=== PATIENT | male | born 1955 | race Caucasian/White ===

== ENCOUNTER 2019-04-20 13:52 | Outpatient (CLI) | payer BC, SELFPAY ==
[2019-04-20 16:01] LABS: Basophils # 0.1 10^3/uL (0.0-0.1); Basophils % 0.6 %; Eosinophils # 0.3 10^3/uL (0.0-0.8); Eosinophils % 2.9 %; Hematocrit 26.3 % (42.0-52.0); Hemoglobin 7.9 g/dL (11.7-16.6); Lymphocytes # 1.3 10^3/uL (0.8-4.8); Lymphocytes % 14.8 %; Mean Corpuscular Hemoglobin 27.7 pg (28.0-34.0); Mean Corpuscular Volume 92.3 fL (80-94); Mean Platelet Volume 9.2 fL (7.4-10.4); Monocytes # 0.9 10^3/uL (0.2-0.9); Monocytes % 10.2 %; Neutrophils # 6.4 10^3/uL (1.8-7.7); Neutrophils % 71.1 %; Nucleated Red Blood Cells % 0 %; Platelet Count 496 10^3/cmm (130-400); Red Blood Count 2.85 10^6/uL (4.1-5.3); Red Cell Distribution Width 15.8 % (12.1-15.1)
[2019-04-20 16:24] LABS: Ferritin 136 ng/mL (30-400); Iron 57 ug/dL (59-158); Percent Saturation 20.2 % (20-50); Total Iron Binding Capacity 282 mg/dL; Unsaturated Iron Binding 225 ug/dL (112-347)
--- NOTE | 2019-04-20 19:32 | ONC CON_ITS ---
Dr. Mcmullen New Patient Note Patient: Rancho Jerry Unit #: [id number]: 1955 Dicatated By: Lei Mcmullen M.D.Date of Visit: Apr 20, 2019 Onc MED New Patient/Consult Referring Physician: Dr. Kodi Mejía M.D. Chief Complaint: Anemia. History of Present Illness: This is a 64 year-old man with moderately severe anemia. He has a history of superficial bladder cancer, initially diagnosed in May 2015. He had undergone multiple TURBT procedures, and he had treatment with intravesical BCG twice during 2015 and again in 2017. On a repeat TURBT on 11/18/2018 he was confirmed to have high-grade, muscle invasive urothelial carcinoma. He then underwent neoadjuvant MVAC chemotherapy followed by radical cystoprostatectomy with ileal conduit on 03/08/2019. I do not have the complete pathology report available. According to the patient there was residual tumor in the bladder but there was no involvement in 19 lymph nodes. Per records, his disease was T2b, N0, which woud be stage II (ypT2b, ypN0, M0). Pathology also showed [place] 3+3 adenocarcinoma involving 1% of the prostate. No additional treatment was recommended. However, during that time, he was found to have lower extremity deep vein thrombosis, for which he was started on anticoagulation with rivaroxaban. His postoperative course was complicated by urinary infection. He did require readmission to the hospital, but the illness resolved uneventfully. During his follow-up visit with he was found to be significantly anemic with his CBC on 04/05/2019 showing hemoglobin 7.7 g and hematocrit 23.7%. The red cell indices were normal. The white blood cell count was just slightly elevated at 11,700. The platelet count was normal at 394,000. His comprehensive metabolic profile showed elevated BUN and creatinine at 52 and 2.43 mg/dL. Albumin was normal at 3.8 g/dL. Bilirubin and liver enzymes were normal. At the time he was having blood in his urine, and he subsequently underwent removal of his ureteral stents. He also started taking an oral iron supplement in addition to his B complex vitamin supplement. He is seen now in regard to the anemia. He says that he has been feeling better since he has been on the oral iron supplement. He has had improvement in his energy/activity tolerance. He is walking quite a bit. His ECOG score is 1. Appetite also is better. He had lost weight, but most of that he has regained now. He has not had any more fever since his antibiotic therapy was completed. He does not have night sweating. He has no shortness of breath, cough, or chest pain. He has no GI complaints. He is currently having no problems with his ileal conduit, and he has had no further blood in the urine since the stents were removed. He has no significant joint or bone pain. He does not complain of headache. He has had some numbness in the ulnar distribution of the left hand. He is also had some tingling on the bottoms of his feet. Past Medical History: His medical history, in addition to bladder cancer, includes hypertension, lower extremity deep vein thrombosis, and obstructive sleep apnea. Past Surgical History: He underwent radical cystoprostatectomy with ileal conduit and with right inguinal hernia repair on 03/08/2019. He had previously undergone TURBT x 4 in 2016, x 1 in 2017 and 2017, and on 11/18/2018. Medications: Coenzyme Q10 1 Tablet Capsule Oral daily, DHEA 1 Capsule Oral daily, Gelatin 1 Capsule Oral daily, Ginkoba 1 Tablet Oral daily, Lisinopril 1 Tablet (of 10 mg) Oral daily, Vitamin B Complex 1 Tablet Oral daily, Xarelto 1 Tablet (of 20 mg) Oral daily Allergies: No Known Allergies. Social History: Mr. Jerry is . He is a non-smoker. He had previously chewed tobacco daily, but he quit in 1978. He has had some alcohol use in the past, but never heavy. He also quit drinking around 1978. Family History: His father at age 72 with complications following surgery for thoracic aneurysm. Mother with Alzheimer's dementia at age 78. A brother has been treated for head/neck cancer, and another brother has had a stroke. Review Of Symptoms: Constitutional - He was feeling very weak, his energy is much better now. Appetite is also better. He had lost weight, but most of that he has regained. He had fever associated with urinary infection, but that resolved with antibiotic. He has not had night sweating. ECOG score is 1, Eyes - No change in vision, ENMT - He has hearing loss and tinnitus. He has a little bit of sinus drainage. No mouth sores. No sore throat or difficulty swallowing, Hematologic/Lymphatic - No abnormal bruising, Respiratory - No shortness of breath. No cough. No pleuritic pain or hemoptysis, Cardiovascular - No angina pain. No palpitations, Gastrointestinal - No nausea or vomiting. No heartburn or acid reflux. No diarrhea or constipation. No blood in the stool or black stools, Genitourinary (M) - He is having no difficulty with the function of his ileal conduit, and he has had no blood in the urine since the stents were removed, Musculoskeletal - No joint or bone pain, Integumentary - He has no skin rash or other skin problems, Neurologic - No headache. He was having lightheadedness, but that has improved. He has some numbness in the ulnar distribution of the left hand, and he has tingling on the bottoms of his feet, Psychiatric - No anxiety or depression. No insomnia. Vital Signs: Performed on Apr 20, 2019 15:01: 0, 29.47, 2.11 sq.m, 70.00 in, 100 %, 84 /min, 22 /min, 128/79 mm(hg), 97.8 F (LOW), and 205.4 lbs (HIGH). Physical Examination: Constitutional - He appears to be in good general health, Eyes - Sclerae nonicteric. Conjunctivae clear, ENMT - No lesions noted in the oral cavity, Neck - No mass or thyromegaly, Hematologic/Lymphatic - No cervical, clavicular, or axillary adenopathy, Respiratory - Lungs are clear with good air movement bilaterally, Cardiovascular - Heart rhythm is regular. There is no murmur, gallop, or rub noted, Abdomen - Soft and non-tender. Liver and spleen are not enlarged. There is no abdominal mass or ascites noted and there is no inguinal adenopathy, Back/Spine - No spine or CVA tenderness noted, Extremities - No edema. Dorsalis pedis pulses are palpable bilaterally, Integumentary - No rashes. There are a couple of very small actinic lesions in the facial area. There are no other suspicious skin lesions noted, Neurologic - No focal neurologic deficits noted. Impression: 1. Patient with moderately severe anemia. Etiology is uncertain, but it is likely that he has at least some component of iron deficiency. 2. He has high-grade, muscle invasive urothelial carcinoma for which he underwent neoadjuvant MVAC chemotherapy followed by radical cystoprostatectomy/ileal conduit on 03/08/2019. His disease was stage II (ypT2b, ypN0, M0). 3. He had incidental finding of a [place] 3+3 adenocarcinoma involving 1% of the prostate. 4. His treatment was complicated by lower extremity deep vein thrombosis, for which he is currently on anticoagulation with rivaroxaban. 5. He had previous history of superficial bladder cancer for which he had undergone multiple TURBT procedures and intravesical BCG. His other medical illnesses include: 6. Hypertension. 7. Obstructive sleep apnea. Plan: He will have additional laboratory studies today including CBC, basic metabolic profile, serum iron studies and ferritin, and a B12 level. He will have further evaluation as indicated. If the anemia is not improving and he is confirmed to have iron deficiency, he will be given the option to have parenteral iron replacement with Injectafer, as it would indicate a failure on oral iron supplementation. Signed By: Lei Mcmullen M.D. <<Signature on File>>
[2019-04-20 19:57] LABS: Anion Gap 17.8 (5-19); Blood Urea Nitrogen 43 mg/dL (8-23); Calcium 10.5 mg/Dl (8.8-10.2); Carbon Dioxide 19 mmol/L (22-29); Chloride 103 mmol/L (98-107); Glomerular Filtration Rate 38.2 mL/min (90-130); Glucose 95 mg/dL (74-106); Osmolality Calculated 278 mOsm/kg (285-295); Potassium 4.8 mmol/L (3.5-5.1); Sodium 135 mmol/L (136-145)
[2019-04-20 20:43] LABS: Vitamin B12 483 pg/mL (232-1245)
== END 2019-04-20 13:53 | disposition home or self-care (01) ==
LOC: ONCMED 13:57
PROVIDERS: Visit Provider Internal Medicine Medical Oncology
DX: D50.0 Iron deficiency anemia secondary to blood loss (chronic) (principal); C61 Malignant neoplasm of prostate; C67.9 Malignant neoplasm of bladder, unspecified; I10 Essential (primary) hypertension; G47.33 Obstructive sleep apnea (adult) (pediatric); Z79.01 Long term (current) use of anticoagulants; Z93.50 Unspecified cystostomy status; Z87.891 Personal history of nicotine dependence; Z90.79 Acquired absence of other genital organ(s); Z92.21 Personal history of antineoplastic chemotherapy; Z86.718 Personal history of other venous thrombosis and embolism; Z87.440 Personal history of urinary (tract) infections; Z92.3 Personal history of irradiation
CPT/HCPCS: 36591; 80048; 82607; 82728; 83540; 83550; 85025; 99205

== ENCOUNTER 2019-04-26 14:41 | Outpatient (CLI) | payer BC, SELFPAY ==
[2019-04-26] MEDS: sodium chloride 0.9% 100 ML 400 ML (15:02)
== END 2019-04-26 14:42 | disposition home or self-care (01) ==
LOC: ONCMED 14:45
PROVIDERS: PCP Family Medicine; Visit Provider Internal Medicine Hematology & Oncology
DX: D50.9 Iron deficiency anemia, unspecified (principal)
CPT/HCPCS: 96365; J1439

== ENCOUNTER 2019-05-03 14:09 | Outpatient (CLI) | payer BC, SELFPAY | END 2019-05-03 14:10 | disposition home or self-care (01) | LOC: ONCMED 14:09 | PROVIDERS: PCP Family Medicine; Visit Provider Internal Medicine Medical Oncology | DX: D50.9 Iron deficiency anemia, unspecified (principal) | CPT/HCPCS: 96365; J1439 ==

== ENCOUNTER 2019-06-01 12:13 | Outpatient (CLI) | payer BC, SELFPAY ==
[2019-06-01 12:37] LABS: Basophils % 0.2 %; Eosinophils # 0.3 10^3/uL (0.0-0.8); Eosinophils % 3.4 %; Hematocrit 37.6 % (42.0-52.0); Hemoglobin 11.4 g/dL (11.7-16.6); Lymphocytes # 1.3 10^3/uL (0.8-4.8); Lymphocytes % 14.1 %; Mean Corpuscular HGB Conc 30.3 g/dL (30.0-36.0); Mean Corpuscular Hemoglobin 28.4 pg (28.0-34.0); Mean Corpuscular Volume 93.8 fL (80-94); Mean Platelet Volume 10.1 fL (7.4-10.4); Monocytes # 0.9 10^3/uL (0.2-0.9); Monocytes % 9.5 %; Neutrophils # 6.5 10^3/uL (1.8-7.7); Neutrophils % 72.6 %; Nucleated Red Blood Cells % 0 %; Platelet Count 253 10^3/cmm (130-400); Red Blood Count 4.01 10^6/uL (4.1-5.3); Red Cell Distribution Width 15.2 % (12.1-15.1); White Blood Count 8.9 10^3/uL (4.0-10.0)
[2019-06-01 12:50] LABS: Ferritin 411 ng/mL (30-400); Iron 71 ug/dL (59-158); Percent Saturation 32.5 % (20-50); Total Iron Binding Capacity 218 mcg/dl; Unsaturated Iron Binding 147 ug/dL (112-347)
--- NOTE | 2019-06-05 23:00 | ONC FU_ITS ---
[facility] Patient Note Patient: Rancho Jerry Unit #: [id number]: 1955 Dictated By: Katya HancockDate of Visit: Jun 01, 2019 Onc MED Follow-Up/Prog Note Chief Complaint: Anemia. History of Present Illness: Mr Jerry is a 64 year-old man with moderately severe anemia. He has a history of superficial bladder cancer, initially diagnosed in May 2015. He had undergone multiple TURBT procedures, and he had treatment with intravesical BCG twice during 2015 and again in 2017. On a repeat TURBT on 11/18/2018 he was confirmed to have high-grade, muscle invasive urothelial carcinoma. He then underwent neoadjuvant MVAC chemotherapy followed by radical cystoprostatectomy with ileal conduit on 03/08/2019. We do not have the complete pathology report available. According to the patient there was residual tumor in the bladder but there was no involvement in 19 lymph nodes. Per records, his disease was T2b, N0, which woud be stage II (ypT2b, ypN0, M0). Pathology also showed [place] 3+3 adenocarcinoma involving 1% of the prostate. No additional treatment was recommended. However, during that time, he was found to have lower extremity deep vein thrombosis, for which he was started on anticoagulation with rivaroxaban. His postoperative course was complicated by urinary infection. He did require readmission to the hospital, but the illness resolved uneventfully. During his follow-up visit with he was found to be significantly anemic with his CBC on 04/05/2019 showing hemoglobin 7.7 g and hematocrit 23.7%. The red cell indices were normal. The white blood cell count was just slightly elevated at 11,700. The platelet count was normal at 394,000. His comprehensive metabolic profile showed elevated BUN and creatinine at 52 and 2.43 mg/dL. Albumin was normal at 3.8 g/dL. Bilirubin and liver enzymes were normal. At the time he was having blood in his urine, and he subsequently underwent removal of his ureteral stents. He also started taking an oral iron supplement in addition to his B complex vitamin supplement. Mr Jerry was unable to tolerate the oral iron and was given IV iron replacement with Injectafer on 04/26 & 05/03/2019. He is here today for follow-up post Injectafer. His hemoglobin prior to the Injectafer was 7.9. He states overall he is feeling really good. He is walking 2 miles at least 3 days a week. He states some days he works further. He is tolerating this well. He denies any shortness of breath. He denies any fatigue. He denies any new pain. He states overall he feels he is doing good. He had no reactions from the Injectafer that he is aware of. He denies any rash. He had no nausea or vomiting. He denies any diarrhea or constipation. His ECOG is 0. Past Medical History: Hypertension Lower extremity deep vein thrombosis Obstructive sleep apnea Past Surgical History: TURBT x 4 in 2016, x 1 in 2017 and 2018, and on 11/18/2018 Radical cystoprostatectomy with ileal conduit and with right inguinal hernia repair in 2019 Allergies: No Known Allergies. Medications: Coenzyme Q10 1 Tablet Capsule Oral daily DHEA 1 Capsule Oral daily Gelatin 1 Capsule Oral daily Ginkoba 1 Tablet Oral daily Lisinopril 1 Tablet (of 10 mg) Oral daily Vitamin B Complex 1 Tablet Oral daily Family History: Mr. Jerry's mother at age 78: fior. Mr. Jerry's father at age 72. Mr. Jerry has 3 brothers: 3 alive. Mr. Jerry's first brother's stroke. His father at age 72 with complications following surgery for thoracic aneurysm. Mother with Alzheimer's dementia at age 78. A brother has been treated for head/neck cancer, and another brother has had a stroke. Social History: Mr. Jerry is and he is an unknown. Mr. Jerry has never smoked. He is a former drinker. He is a non-smoker. He had previously chewed tobacco daily, but he quit in 1978. He has had some alcohol use in the past, but never heavy. He also quit drinking around 1978. Review Of Symptoms: Constitutional Denies fevers, chills, night sweats, excessive fatigue or weight loss. Allergic/Immunologic No reactions. Eyes Denies significant visual changes. No diplopia. No amaurosis. ENMT Denies changes in hearing, sore throat, mouth sores, difficulty or changes in swallowing ability, and/or sinus drainage. Hematologic/Lymphatic Denies easy bruising or bleeding. The patient denies any tender or palpable lymph nodes. Respiratory Denies dyspnea on exertion, chest pain, cough or hemoptysis. Denies orthopnea. Cardiovascular Denies anginal chest pain, palpitations or orthopnea. Gastrointestinal Denies nausea, vomiting, diarrhea, GI bleeding, or constipation. Denies change in bowel habits and/or stool color, no heartburn or early satiety. Genitourinary (M) Denies hematuria, dysuria, increased frequency, urgency, hesitancy or incontinence. Musculoskeletal Denies joint pain, swelling or redness. No decreased range of motion. Integumentary Denies chronic rashes, inflammation, ulcerations or skin changes. Neurologic Denies headache, blurred vision, and no areas of focal weakness or numbness. Normal gait. No sensory problems. Psychiatric Denies insomnia, depression, baldemar or mood swings. Vital Signs: Performed on Jun 01, 2019 14:33 Height - 70.00 in Weight - 218.4 lbs (HIGH) BSA - 2.17 sq.m BMI - 31.34 (HIGH) Temperature - 97.2 F (LOW) Pulse - 65 /min Respiration - 16 /min BP - 128/74 mm(hg) O2 Sat - 96 % Pain - 0 Fatigue - 0,0 - Fully active, able to carry on all predisease activities without restrictions. (ECOG) Physical Examination: Constitutional Alert, oriented, no acute distress. Skin pink, warm and dry. Head Normocephalic; atraumatic. Eyes Conjunctivae and sclerae are clear and without icterus. Pupils are reactive and equal. Neck Supple without masses or thyromegaly. No jugular venous distension. Hematologic/Lymphatic No petechiae or purpura. No tender or palpable lymph nodes in the cervical or supraclavicular areas. Respiratory Lungs are clear to auscultation without rhonchi or wheezing. Cardiovascular Regular rate and rhythm of heart without murmurs,clicks, gallops or rubs. Back/Spine Non-tender to palpation. Extremities No visible deformities, no cyanosis, clubbing or edema. Musculoskeletal No tenderness or swelling, normal range of motion without obvious weakness. Integumentary No rashes or lesions. Neurologic No sensory or motor deficits, normal cerebellar function, normal gait. Psychiatric Alert and oriented times three. Coherent speech. Verbalizes understanding of our discussions today. Laboratory:Test performed on Jun 01, 2019 12:00 Ferritin 411 ng/mL Iron 71 ug/dL UIBC 147 ug/dL WBC 8.9 10 3/uL RBC 4.01 10 6/uL HGB 11.4 g/dL HCT 37.6 % MCV 93.8 fL MCH 28.4 pg MCHC 30.3 g/dL RDW 15.2 % Platelet Count 253 10 3/cmm MPV 10.1 fL Neutrophils 6.5 10 3/uL Lymphocytes 1.3 10 3/uL Monocytes 0.9 10 3/uL Eosinophils 0.3 10 3/uL Basophils 0.0 10 3/uL Neutrophil % 72.6 % Lymphocyte % 14.1 % Monocyte % 9.5 % Eosinophil % 3.4 % Basophils % 0.2 % Impression: 1. Patient with moderately severe anemia. Etiology is uncertain, but it is likely that he has at least some component of iron deficiency. 2. He has high-grade, muscle invasive urothelial carcinoma for which he underwent neoadjuvant MVAC chemotherapy followed by radical cystoprostatectomy/ileal conduit on 03/08/2019. His disease was stage II (ypT2b, ypN0, M0). 3. He had incidental finding of a [place] 3+3 adenocarcinoma involving 1% of the prostate. 4. His treatment was complicated by lower extremity deep vein thrombosis, for which he is currently on anticoagulation with rivaroxaban. 5. He had previous history of superficial bladder cancer for which he had undergone multiple TURBT procedures and intravesical BCG. His other medical illnesses include: 6. Hypertension. 7. Obstructive sleep apnea. Mr Jerry was found to be iron deficient and did not respond to oral replacement. He was given Injectafer on 04/26/2019 & 05/03/2019. His Hgb on 04/20/2019 was 7.9. He tolerated the Injectafer well. Plan: 1. Today's labs were reviewed in detail and discussed with Mr. Mrs. Jerry and a copy was given to them. WBC 8.4, hemoglobin 11.4 platelets 10 53,000 iron 71 ferritin 411. Iron saturation 32.5%. 2. Continue observation of iron deficiency anemia-recheck CBC, CMP in 1 month. 3. He states he thinks he will be transferring his oncology care to Dr Mcmullen at the recommendation of his current oncologist. 4. He will have monthly port flushes unless he decides to have his Port-A-Cath removed. 5. We will plan further follow-up we see about the anticipated referral from his current oncologist. His advised we need to see him at least in 3 months or before if any problems or questions arise. 6. Mr. Jerry has no further questions or concerns today he verbalized understanding and agrees to call us if he has any questions or problems. Signed By: Katya Hancock-, AOCNP Lei Mcmullen MD <<Signature on File>>
== END 2019-06-01 12:14 | disposition home or self-care (01) ==
LOC: ONCMED 12:15
PROVIDERS: PCP Family Medicine; Visit Provider Nurse Practitioner
DX: D50.0 Iron deficiency anemia secondary to blood loss (chronic) (principal); Z45.2 Encounter for adjustment and management of vascular access device; Z85.51 Personal history of malignant neoplasm of bladder; I10 Essential (primary) hypertension; G47.33 Obstructive sleep apnea (adult) (pediatric); Z79.01 Long term (current) use of anticoagulants; Z87.440 Personal history of urinary (tract) infections; Z86.718 Personal history of other venous thrombosis and embolism; Z87.891 Personal history of nicotine dependence; Z92.21 Personal history of antineoplastic chemotherapy
CPT/HCPCS: 82728; 83540; 83550; 85025; 96523; G0463

== ENCOUNTER 2019-07-04 14:46 | Outpatient (CLI) | payer BC, SELFPAY ==
[2019-07-04 15:10] LABS: Basophils % 0.2 %; Eosinophils # 0.3 10^3/uL (0.0-0.8); Eosinophils % 3.1 %; Hematocrit 37.2 % (42.0-52.0); Hemoglobin 11.7 g/dL (11.7-16.6); Lymphocytes # 1.4 10^3/uL (0.8-4.8); Lymphocytes % 16.7 %; Mean Corpuscular HGB Conc 31.5 g/dL (30.0-36.0); Mean Corpuscular Hemoglobin 28.3 pg (28.0-34.0); Mean Corpuscular Volume 90.1 fL (80-94); Monocytes # 1.1 10^3/uL (0.2-0.9); Monocytes % 12.3 %; Neutrophils # 5.8 10^3/uL (1.8-7.7); Neutrophils % 67.4 %; Nucleated Red Blood Cells % 0 %; Platelet Count 250 10^3/cmm (130-400); Red Blood Count 4.13 10^6/uL (4.1-5.3); Red Cell Distribution Width 14.7 % (12.1-15.1); White Blood Count 8.6 10^3/uL (4.0-10.0)
[2019-07-04 15:48] LABS: Alanine Aminotransferase 19 U/L (0-41); Albumin Level 4.1 g/dL (3.5-5.2); Alkaline Phosphatase 104 IU/L (40-130); Anion Gap 18.4 (5-19); Aspartate Amino Transferase 17 U/L (0-40); Blood Urea Nitrogen 31 mg/dL (8-23); Calcium 9.7 mg/dL (8.5-10.5); Carbon Dioxide 22 mmol/L (22-29); Chloride 103 mmol/L (98-107); Ferritin 337 ng/mL (30-400); Globulin 3.4 g/dL (1.3-4.6); Glomerular Filtration Rate 28.8 mL/min (90-130); Glucose 97 mg/dL (65-115); Iron 45 ug/dL (59-158); Osmolality Calculated 285 mOsm/kg (285-295); Percent Saturation 21.9 % (20-50); Potassium 4.4 mmol/L (3.5-5.1); Sodium 139 mmol/L (136-145); Total Bilirubin 0.2 mg/dL (0.15-1.2); Total Iron Binding Capacity 205 mcg/dl; Total Protein 7.5 g/dL (6.6-8.7); Unsaturated Iron Binding 160 ug/dL (112-347)
== END 2019-07-04 14:47 | disposition home or self-care (01) ==
PROVIDERS: PCP Family Medicine; Visit Provider Nurse Practitioner
DX: D50.9 Iron deficiency anemia, unspecified (principal)
CPT/HCPCS: 36415; 36591; 80053; 82728; 83540; 83550; 85025

== ENCOUNTER 2019-08-15 14:48 | Outpatient (CLI) | payer BC, SELFPAY | END 2019-08-15 14:49 | disposition home or self-care (01) | LOC: ONCMED 14:51 | PROVIDERS: PCP Family Medicine; Visit Provider Internal Medicine Hematology & Oncology | DX: Z45.2 Encounter for adjustment and management of vascular access device (principal); D50.0 Iron deficiency anemia secondary to blood loss (chronic) | CPT/HCPCS: 96523 ==

== ENCOUNTER 2019-09-12 14:37 | Outpatient (CLI) | payer BC, SELFPAY | END 2019-09-12 14:38 | disposition home or self-care (01) | LOC: ONCMED 14:40 | PROVIDERS: PCP Family Medicine; Visit Provider Internal Medicine Medical Oncology | DX: Z45.2 Encounter for adjustment and management of vascular access device (principal) | CPT/HCPCS: 96523 ==